=== PATIENT | male | born 1995 | race Caucasian/White ===

== ENCOUNTER 2020-06-18 20:04 | Inpatient (IN) | payer OTHER ==
[~2020-06-18] VITALS: Ht 172.7 cm; Wt 68.9 kg
[2020-06-18 20:04] VITALS: BP_SYST 156
--- NOTE | 2020-06-18 20:10 | NUR ---
Pt placed to ER bed 03, to gown, to gambling monitor. Report given to JOSE Prescott.
--- NOTE | 2020-06-18 20:10 | NUR ---
Alex bey in ED - 06/18/20 at 2033 by ABBIE Pt placed to ER bed 03, to yara, to cardiac technician. Report given to JOSE Cowan.
[2020-06-18] MEDS ORDERED: NACL 0.9% 1,000 ML IV ONE ×3 (20:30→23:00)
[2020-06-18] MEDS ORDERED: ONDANSETRON HCL 4 MG/2 ML VIAL IVP ONE ×2 (20:30→22:30)
--- NOTE | 2020-06-18 20:33 | NUR ---
Dr. Varner at bedside.
--- NOTE | 2020-06-18 20:40 | NUR ---
PT PRESENTS FROM HOME BIB MOTHER FOR N/V SINCE FRIDAY WITH GENERALIZED WEAKNESS AND BODY ACHES. DENIES FEVER. 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 ALSO REPORTS 21 LB WEIGHT LOSS SINCE FRIDAY. PT PRESENTS LETHARGIC AND PALE, AAOX4, V/S STABLE
--- NOTE | 2020-06-18 20:45 | NUR ---
# 20 gauge angiocath placed to RAC. Use of asceptic technique. Opsite placed over site. Blood return noted. Blood for lab drawn from site. Flushed with 10 cc of normal saline. No evidence of infiltration noted. Patient tolerated well.
[2020-06-18] MEDS ORDERED: PRED20TA PO (20:49)
[2020-06-18] MEDS ORDERED: AMOX-426 PO (20:50)
--- NOTE | 2020-06-18 20:50 | NUR ---
Medication reconciliation completed with information provided by PT. Any prior medication reconciliation on file was reviewed and corrected.
[2020-06-18 20:53] LABS: BASOPHILS % (AUTO) 0.2 % (0.0-2.0); EOSINOPHILS % (AUTO) 0.1 % (0.0-4.0); HEMATOCRIT 54.5 % (36-54); HEMOGLOBIN 18.4 g/dL (14.0-18.0); LYMPHOCYTES # (AUTO) 1.3 K/uL (1.0-5.5); MEAN CORPUSCULAR HEMOGLOBIN 29 pg (27-31); MEAN CORPUSCULAR HGB CONC 34 % (32-36); MEAN CORPUSCULAR VOLUME 87 fL (79.0-98.0); MONOCYTES # (AUTO) 0.6 K/uL (0.0-1.0); MONOCYTES % (AUTO) 6.2 % (1.7-9.3); NEUTROPHILS % (AUTO) 80.5 % (40.0-70.0); PLATELET COUNT (AUTO) 334 K/uL (130-430); RED BLOOD CELL COUNT(AUTO) 6.25 MIL/uL (4.2-6.2); RED CELL DISTRIBUTION WIDTH 14.3 % (9.0-15.0); WHITE BLOOD COUNT (AUTO) 9.9 K/uL (4.8-10.8)
[2020-06-18] MEDS ORDERED: KETOROLAC TROMETHAMINE 30 MG VIAL IVP ONE (21:00)
[2020-06-18] MEDS ORDERED: ERYTHROMYCIN LACTOBIONATE IV ONE (21:00)
[2020-06-18] MEDS ORDERED: NS IV ONE (21:00)
[2020-06-18 21:03] LABS: CALCIUM 9.2 mg/dL (8.4-11.0); CREATININE 1.75 mg/dL (0.55-1.30); POTASSIUM 4.2 mmol/L (3.5-5.1)
[2020-06-18 21:06] LABS: PROTHROMBIN TIME 10.2 SECS (9.5-12.5)
[2020-06-18 21:09] LABS: ALBUMIN 5.1 g/dL (3.4-4.8)
--- NOTE | 2020-06-18 21:10 | NUR ---
critical lab reporting - blood glucose 423. MD aware.
--- NOTE | 2020-06-18 21:30 | NUR ---
SWAB OF PHARYNX DONE AND SENT TO LAB, PT TOLERATED WELL.
[2020-06-18] MEDS ORDERED: AZITHROMYCIN 1,000 MG in NS 250 ML IV ONE (21:45)
[2020-06-18] MEDS ORDERED: INSULIN REGULAR, HUMAN 10 UNITS/0.1 ML INJ IVP ONE (21:45)
--- NOTE | 2020-06-18 22:15 | NUR ---
ADMIT ORDERS RECEIVED FROM DR. ADAN.
--- NOTE | 2020-06-18 22:15 | NUR ---
Called for ICU bed, spoke with limehouse worker, Ivis. Informed that there are no available ICU beds, no mechanical laboratory technician, and pt status to be ER Hold.
[2020-06-18] MEDS ORDERED: AZITHROMYCIN 500 MG/VIAL (ZITHROMAX) IV ONE (22:16)
--- NOTE | 2020-06-18 22:40 | NUR ---
PT ABLE TO VOID IN URINAL, SPECIMEN SENT TO LAB
[2020-06-18 22:54] LABS: BILIRUBIN,URINE NEGATIVE (NEGATIVE); BLOOD, URINE 2+ (NEGATIVE); CLARITY/URINE CLEAR (CLEAR); COLOR,URINE YELLOW (YELLOW); GLUCOSE,URINE 2+ (NEGATIVE); KETONES,URINE 3+ (NEGATIVE); LEUKOCYTE ESTERASE ,URINE NEGATIVE (NEGATIVE); NITRITE, URINE NEGATIVE (NEGATIVE); PH,URINE 5.5 (5.0-8.0); PROTEIN URINE 2+ (NEGATIVE); UROBILINOGEN,URINE 0.2 (0.2-1.0)
--- NOTE | 2020-06-18 22:55 | NUR ---
COVID SWAB DONE AND SENT TO LAB
[2020-06-18] MEDS ORDERED: ALBUTEROL SULFATE 0.083% 2.5 MG/3 ML VIAL.NEB INH PRN (23:00)
[2020-06-18] MEDS ORDERED: INSULIN REGULAR, HUMAN 100 UNITS in NS 99 ML IV PRN ×2 (23:00)
[2020-06-18] MEDS ORDERED: MORPHINE 2 MG/ML INJ. SYRINGE IVP PRN (23:00)
[2020-06-18] MEDS ORDERED: NALOXONE HCL 0.4 MG/ML AMP (NARCAN) IVP PRN ×2 (23:00)
[2020-06-18] MEDS ORDERED: ONDANSETRON HCL 4 MG/2 ML VIAL IVP PRN (23:00)
[2020-06-18] MEDS ORDERED: HYDROcodone/ACETAMIN 5-325 MG TAB (NORCO/ VICODIN) PO PRN (23:00)
[2020-06-18 23:02] LABS: BACTERIA,URINE FEW /HPF (None Seen); WBC,URINE 0-3 /HPF (0-3)
--- NOTE | 2020-06-18 23:15 | NUR ---
Patient resting quietly. No acute distress noted. Vital signs within normal range.
[2020-06-18] MEDS ORDERED: AMPICILLIN SODIUM/SULBACTAM NA 3 GM VIAL ONE (23:59)
--- NOTE | 2020-06-19 | NUR ---
Patient resting quietly. No acute distress noted. Vital signs within normal range.
[2020-06-19] MEDS: AMPICILLIN SODIUM/SULBACTAM NA 3 GM in NS 100 ML IV SCH ×5 (00:06→23:10)
--- NOTE | 2020-06-19 03:05 | NUR ---
PT SLEEPING IN BED, NO DISTRESS NOTED. V/S STABLE
[2020-06-19] MEDS: NACL 0.9% 1,000 ML IV SCH ×4 (03:45→16:09)
--- NOTE | 2020-06-19 05:01 | NUR ---
PT IS RESTING IN BED COMFORTABLY. NO S/SX OF DISTRESS, V/S STABLE. DENIES PAIN AT THIS TIME.
[2020-06-19 05:48] VITALS: BP_SYST 111
[2020-06-19] MEDS ORDERED: AMPICILLIN SODIUM/SULBACTAM NA 3 GM VIAL ONE (06:48)
[2020-06-19 07:02] LABS: HEMATOCRIT 47.9 % (36-54); HEMOGLOBIN 15.7 g/dL (14.0-18.0); MEAN CORPUSCULAR HEMOGLOBIN 28 pg (27-31); MEAN CORPUSCULAR HGB CONC 33 % (32-36); MEAN CORPUSCULAR VOLUME 87 fL (79.0-98.0); RED BLOOD CELL COUNT(AUTO) 5.53 MIL/uL (4.2-6.2); RED CELL DISTRIBUTION WIDTH 14.5 % (9.0-15.0); WHITE BLOOD COUNT (AUTO) 10.5 K/uL (4.8-10.8)
[2020-06-19 07:03] LABS: BASOPHILS % (AUTO) 0.1 % (0.0-2.0); EOSINOPHILS % (AUTO) 0.2 % (0.0-4.0); LYMPHOCYTES # (AUTO) 1.7 K/uL (1.0-5.5); LYMPHOCYTES % (AUTO) 16.6 % (20.5-51.5); MONOCYTES # (AUTO) 1.2 K/uL (0.0-1.0); MONOCYTES % (AUTO) 11.1 % (1.7-9.3); NEUTROPHILS # (AUTO) 7.5 K/uL (1.8-7.7); PLATELET COUNT (AUTO) 305 K/uL (130-430)
--- NOTE | 2020-06-19 07:10 | NUR ---
Report received from JOSE Prescott for continuation of care.
--- NOTE | 2020-06-19 07:10 | NUR ---
REPORT GIVEN TO JOSE BOLAÑOS FOR CONTINUING CARE
[2020-06-19 07:18] LABS: ALBUMIN 3.7 g/dL (3.4-4.8); CALCIUM 8.6 mg/dL (8.4-11.0); CREATININE 1.41 mg/dL (0.55-1.30); TOTAL BILIRUBIN 0.8 mg/dL (0.0-1.0)
--- NOTE | 2020-06-19 10:31 | NUR ---
Spoke with Dr. Manning about abnormal patient labs. He states he will review them and put in orders.
--- NOTE | 2020-06-19 10:40 | NUR ---
Emptied 700cc of dark yellow urine from urinal.
--- NOTE | 2020-06-19 10:50 | NUR ---
Dr. Manning stated to downgrade patient to telemetry and stop insulin drip.
--- NOTE | 2020-06-19 10:51 | NUR ---
Called [facility] for bed assignment. efraín Nicholas RN, is not available at this time.
--- NOTE | 2020-06-19 10:57 | NUR ---
Yu called back and stated she will call back with room assignment.
[2020-06-19] MEDS ORDERED: DEXTROSE 50% JECT 50 ML DISP.SYRIN IVP PRN (11:45)
--- NOTE | 2020-06-19 11:47 | NUR ---
DR BAUTISTA HERE TO EVALUATE PT.
--- NOTE | 2020-06-19 11:50 | NUR ---
Father called for update. Asked to setup one point of contact to reduce calls to nurse. He refused stating he will not call the mother for updates. Will let inform oncoming nurse.
[2020-06-19] MEDS ORDERED: FLUCONAZOLE 100 mg/ NS 50 ML IV SCH (12:00)
[2020-06-19] MEDS: INSULIN REGULAR, HUMAN 100 UNITS/ML, 10 ML VIAL (humuLIN R) SUBCUT PRN ×3 (12:39→23:17)
--- NOTE | 2020-06-19 12:44 | NUR ---
Transfer to [facility] via ACLS protocol. Licensed nurse present. IV present no signs or symptoms of infiltration.
--- NOTE | 2020-06-19 12:55 | NUR ---
Admission Note Received patient from ER with diagnosis of DKA. Initial Plan of Care discussed-patient verbalized his understanding. Oriented to room, call light, pain management and safety.
[2020-06-19] MEDS ORDERED: INSULIN REGULAR, HUMAN 10 UNITS/0.1 ML INJ ONE (12:58)
--- NOTE | 2020-06-19 13:14 | NUR ---
CONSULTATION PAGED/CALLED Reason for Consultation: [] SEPSIS Person Who was Notified: [] DR ROMERO Consulting Physician: [] DR ROMERO Overnight Houseperson Specialty: [] ID Ordering Physician: [] DR BAUTISTA
[2020-06-19 13:15] VITALS: BP_SYST 136
[2020-06-19] MEDS ORDERED: INSULIN GLARGINE 100 UNITS/ML 10 ML VIAL SUBCUT SCH (13:15)
--- NOTE | 2020-06-19 13:15 | NUR ---
CONSULTATION PAGED/CALLED Reason for Consultation: [] SEPSIS Person Who was Notified: [] PAGED DR HAMILTON DIRECTLY, CURRICULUM ADVISORY TEACHER FOR DR HAMPTON Consulting Physician: [] DR HAMILTON Bagel Maker Specialty: [] PULMO Ordering Physician: [] DR BAUTISTA
--- NOTE | 2020-06-19 13:48 | NUR ---
Spoke w/ parents of patient-they are requesting pt be transferred to [facility] under the care of Dr Camacho-his oncologist. Left message for Dr Manning regarding the transfer. Spoke to Mateo at [facility] in the transfer Ctr [phone]/ -He requested clinical info, facesheet and COVID results be faxed to him.
--- NOTE | 2020-06-19 14:22 | NUR ---
Discharge Planning: DCP faxed pt referral to Mateo at [facility] (p [phone] f [phone]), DCP arranged transportation with [facility] ([phone]) Will Call per CM requset. [facility] to call nurse with room number.
--- NOTE | 2020-06-19 18:40 | NUR ---
CLOSING NOTE Pt sitting up in bed with no s/s resp distress, no c/o pain or discomfort.tolerated CCHO diet, no c/o GI distress. IVF infusing well to RAC at ordered rate with no s/s infiltration to site. Pt given Laptop his mother brought in. Needs, met, call light within reach.
--- NOTE | 2020-06-19 19:30 | NUR ---
CHANGE OF SHIFT; endorsed by day shift that pt. will be transferred to [facility], pillowcase folder was working on it. nurse Enamorado said a form needs to be fill out and fax to [facility]. day and shift supervisor film processing charge nurses aware.
--- NOTE | 2020-06-19 20:00 | NUR ---
NOTES: senior technical trainer informed me that there is an available and will call fro transportation. arrangement was done and schedule for midnight.
[2020-06-19 20:30] VITALS: BP_SYST 130
--- NOTE | 2020-06-19 20:30 | NUR ---
NOTES: VS checked. pt. ambulated to the restroom. denies any pain nor discomfort. IVF infusing @ 175 cc/hr. via rt. antecubital. on court recording monitor shows sinus bradycardia. instructed to use call light for help and verbalized understanding.
--- NOTE | 2020-06-19 20:50 | NUR ---
NOTES: called Dr. Manning and informed him about bed available for transfer and needs an order for discharge transfer. and ok'd. charge nurse Berna made aware.
--- NOTE | 2020-06-19 21:25 | NUR ---
NOTES: pt. mother called and informed her about the transfer but has so many questions inspite of the explanations, ask to talk to charge nurse and Berna talked to her.
--- NOTE | 2020-06-19 21:43 | NUR ---
NOTES: report called to [facility] with nurse Cope.
--- NOTE | 2020-06-19 21:50 | NUR ---
NOTES: informed pt. about the transfer tonight @ midnight per transport. made him aware the his mom called and told her.
--- NOTE | 2020-06-19 22:04 | NUR ---
NOTES: discharge papers completed.
[2020-06-19 22:25] LABS: CALCIUM 8.4 mg/dL (8.4-11.0); CREATININE 1.23 mg/dL (0.55-1.30); POTASSIUM 3.3 mmol/L (3.5-5.1)
--- NOTE | 2020-06-19 23:10 | NUR ---
NOTES: BS checked 220 with sliding scale coverage given. IV antibiotic infusing. waiting for the transport. transfer acknowledgement consent signed.
--- NOTE | 2020-06-20 00:15 | NUR ---
NOTES: report given to [facility] transport . IV lock. VS checked BP 125/65 HR 56. charge nurse Berna called pt. mother to inform of the ambulance arrival.
--- NOTE | 2020-06-20 00:26 | NUR ---
DISCHARGE NOTES; PT. DISCHARGE VIA AMBULANCE WITH [facility] IN STABLE CONDITION. PT. BELONGINGS CHECKED AND SIGNED.
[2020-06-20] MEDS ORDERED: ACYCLOVIR IV 500 MG in D5W 100 ML IV SCH (09:00)
[2020-06-20 10:05] LABS: HEMOGLOBIN A1C 10.3 % (4.8-5.6)
[2020-06-20 10:06] LABS: CORTISOL (SERUM) 25.8 ug/dL (.)
== END 2020-06-20 00:26 | disposition short-term general hospital (02) | DRG 638 ==
LOC: EDBD 20:04 → SED 20:04 → SIC 22:21 → STU 06-19 12:43
PROVIDERS: ADMIT Internal Medicine Hospice and Palliative Medicine; ATTEND Internal Medicine Hospice and Palliative Medicine
DX: E11.10 Type 2 diabetes mellitus with ketoacidosis without coma (principal); N17.9 Acute kidney failure, unspecified; E87.0 Hyperosmolality and hypernatremia; Z20.828 Contact with and (suspected) exposure to other viral communicable diseases; E86.0 Dehydration; Z85.71 Personal history of Hodgkin lymphoma; Z85.9 Personal history of malignant neoplasm, unspecified; Z51.11 Encounter for antineoplastic chemotherapy; Z79.899 Other long term (current) drug therapy; Z90.49 Acquired absence of other specified parts of digestive tract; Z79.2 Long term (current) use of antibiotics
CPT/HCPCS: 36415; 71045; 80048; 80053; 81000-TC; 82009-TC; 82533; 82550-TC; 82962; 83036; 83605; 83690-TC; 84443-TC; 84484; 85025; 85610-TC; 85730-TC; 87040-TC; 87070-TC; 93005; 96361; 96365; 96367; 96375; 96376; 99291; G0378; J0133; J0295; J0456; J1364; J1450; J1815; J1885; J2405; J7030; J7060